=== PATIENT | female | born 1950 | race Caucasian/White ===

== ENCOUNTER 2017-02-25 17:40 | Emergency (ER) | payer MEDICARE ==
[~2017-02-25] VITALS: Ht 162.6 cm; Wt 54.4 kg
--- NOTE | 2017-02-26 17:16 | EKG ---
[facility] [address] [facility] [place] [address] Signed Sinus rhythm with premature atrial complexes Abnormal QRS-T angle, consider primary T wave abnormality Abnormal ECG No previous ECGs available Confirmed by RADHA ZIMMERMAN MD ([id number]) on 02/26/2017 5:16:28 PM Electronically Signed By: RADHA ZIMMERMAN MD 02/26/17 1716 PATIENT NAME: BRAD NOLASCORay MILLER Electrocardiogram DATE OF : 50 PHYSICIAN: RADHA ZIMMERMAN MD REPORT #: [id number] REPORT IS CONFIDENTIAL AND NOT TO BE RELEASED WITHOUT AUTHORIZATION
== END 2017-02-25 20:40 | disposition home or self-care (01) ==
LOC: ED 17:40 → ER 17:41 → ED 20:40
DX: R55 Syncope and collapse (principal); F17.200 Nicotine dependence, unspecified, uncomplicated
CPT/HCPCS: 80053; 81001; 84484; 85025; 93005; 93010; 96360; 99284; J7030